=== PATIENT | male | born 1955 | race Caucasian/White ===

== ENCOUNTER 2020-02-08 21:56 | Inpatient (IN) ==
[2020-02-08] MEDS ORDERED: ONDANSETRON INJ 2 MG/ML 2 ML VIAL IV STA (22:14)
--- NOTE | 2020-02-08 22:44 | Emergency Department Note ---
History of Present Illness General Chief complaint: Fall Stated complaint: FALL, STRUCK HEAD Time Seen by Provider: 02/08/20 22:07 History of Present Illness Maximum Pain Intensity: 5 This is a 64-year-old male that presents to the emergency department via ambulance with complaints of "fall, struck head". The patient states that earlier today he was in his wheelchair and was backing up and notes that this was out of his garage and believes that the wheel struck a rock causing him to tip over striking the back of the head and left side of the head against the concrete. He notes immediate pain in the head. This occurred around 8 PM. He also notes significant numbness and trouble with his body from the chest down secondary to surgery in August and this is not new as of today. He also notes pain in his right arm and right forearm. Patient notes that he lives alone currently. He denies any anticoagulant use. In addition to the left-sided head pain he also notes pain in the right arm. He does have to self catheterize. He rates her overall discomfort as a 5/10. Home Medications Home Medications Medication Instructions Recorded Confirmed Type acetazolamide 125 mg PO BID 02/08/20 02/08/20 History atenolol 50 mg PO DAILY 02/08/20 02/08/20 History gabapentin 300 mg PO TID 02/08/20 02/08/20 History insulin detemir U-100 [Levemir 64 unit SUBCUT HS 02/08/20 02/08/20 History FlexTouch U-100 Insuln] losartan 25 mg PO DAILY 02/08/20 02/08/20 History pantoprazole 40 mg PO DAILY 02/08/20 02/08/20 History tamsulosin 0.4 mg PO BID 02/08/20 02/08/20 History tramadol 50 mg PO Q6 PRN 02/08/20 02/08/20 History Allergies Allergy/AdvReac Type Severity Reaction Status Date / Time Sulfa (Sulfonamide Allergy Unknown Verified 02/09/20 01:29 Antibiotics) canagliflozin [From Invokana] AdvReac Unknown Verified 02/09/20 01:29 metformin AdvReac Gastrointestinal Verified 02/09/20 01:29 Upset Past Med/Surg History Medical History Diabetes HTN (hypertension) Surgical History Hx of spinal surgery Status post craniectomy Social History Smoking Status: Never smoker Second Hand Exposure: Yes; Do You Dip or Chew Tobacco: No; Hx Alcohol Use: No Hx Substance Use: No Preferred Language: Azeri Communication Ability: Effective Beliefs That Will Affect Care: None Current Living Situation: Alone Current Living Situation Comment: single story home Feels Safe at Home: Yes Safety Concerns: Afraid for Self Review of Systems A total of 10 systems reviewed and were otherwise negative Physical Exam Vital Signs Vital Signs - 24 hr 02/08/20 22:01 02/08/20 23:56 02/09/20 00:58 Temperature 36.7 C Temperature Source Oral Pulse Rate 74 Pulse Rate [Right] 79 102 H Pulse Rhythm Regular Pulse Rhythm [Right] Regular Regular Pulse Strength Normal Pulse Strength [Right] Normal Normal Respiratory Rate 16 16 16 Respiratory Effort / Characteristics Non-Labored Spontaneous Non-Labored Spontaneous Non-Labored Spontaneous Respiratory Depth Normal Normal Normal Blood Pressure 133/78 Blood Pressure [Right Arm] 148/79 H 144/81 H Blood Pressure Mean 96 Blood Pressure Mean [Right Arm] 102 102 Blood Pressure Position Lying Blood Pressure Position [Right Arm] Lying Lying Pulse Oximetry 96 96 97 Oxygen Delivery Method Room Air Room Air Room Air Sepsis Recent Fever Within 48 Hours No Sepsis New/Unexplained Change in Mental Status N/A Sepsis Action Taken by Nursing No Action Required 02/09/20 02:05 Temperature Temperature Source Pulse Rate Pulse Rate [Right] 90 Pulse Rhythm Pulse Rhythm [Right] Regular Pulse Strength Pulse Strength [Right] Normal Respiratory Rate 16 Respiratory Effort / Characteristics Non-Labored Spontaneous Respiratory Depth Normal Blood Pressure Blood Pressure [Right Arm] 148/87 H Blood Pressure Mean Blood Pressure Mean [Right Arm] 107 Blood Pressure Position Blood Pressure Position [Right Arm] Lying Pulse Oximetry 96 Oxygen Delivery Method Room Air Sepsis Recent Fever Within 48 Hours Sepsis New/Unexplained Change in Mental Status Sepsis Action Taken by Nursing VITAL SIGNS - Vital signs and nursing notes were reviewed. Stable and afebrile. GENERAL -64-year-old male appearing his stated age who is in no acute distress. Communicates well with provider and answers questions appropriately. SKIN - Without rashes. Small abrasion to the left lateral leg. No bony deformity. HEAD - NC/AT. No feliz signs or raccoon's eyes. There is tenderness overlying left lateral parietal region EYES - PERRL with EOMI bilaterally. Sclera anicteric. EARS - No deformities of external structures noted on gross examination bilaterally. No hemotympanum. NOSE - Midline and without cyanosis. No epistaxis or purulent drainage noted. Septum midline without deviation or septal hematoma noted. MOUTH/OROPHARYNX - Without perioral cyanosis. Buccal mucosa pink and moist and without leukoplakia. Tongue midline with equal elevation of palate bilaterally. No tonsillar hypertrophy, erythema, or exudates noted. Fair dentition noted. NECK -no direct C-spine tenderness but there is evidence of surgical incision well-healed. LUNGS - Chest wall symmetric without accessory muscle use, intercostals retractions, or central cyanosis. Normal vesicular breath sounds CTA B/L. No wheezes, rales, or rhonchi appreciated. CARDIAC - RRR with S1/S2. No murmur, rubs, or gallops appreciated. ABDOMEN - Abdominal contour normal without pulsations or visible masses. BS normoactive all four quadrants. No tenderness, palpable masses, hepatosplenomegaly, or ascites noted. EXTREMITIES - No clubbing or peripheral cyanosis. No pretibial edema present. Patient does have strength deficits on the right compared to left which he notes is not new. NEUROLOGIC - Cranial nerves II through XII grossly intact. PSYCH - A&Ox3 and cooperates fully with examiner. Pt is very pleasant and interacts well with examiner. Course Administered Medications Acetaminophen (Acetaminophen 325 Mg Tab) 650 mg PO Q6H ZAMZAM Stop: 03/10/20 05:59 Last Admin: 02/10/20 12:17 Dose: 650 mg Documented by: [id number] Admin: 02/10/20 05:25 Dose: 650 mg Documented by: [id number] Admin: 02/10/20 00:06 Dose: 650 mg Documented by: [id number] Admin: 02/09/20 17:26 Dose: 650 mg Documented by: [id number] Admin: 02/09/20 12:43 Dose: 650 mg Documented by: [id number] Admin: 02/09/20 06:16 Dose: 650 mg Documented by: [id number] Acetazolamide (Acetazolamide 250 Mg Tab) 125 mg PO BID ZAMZAM Stop: 03/10/20 08:59 Last Admin: 02/10/20 08:32 Dose: 125 mg Documented by: [id number] Admin: 02/09/20 21:23 Dose: 125 mg Documented by: [id number] Admin: 02/09/20 09:10 Dose: 125 mg Documented by: [id number] Atenolol (Atenolol 50 Mg Tablet) 50 mg PO DAILY ZAMZAM Stop: 03/10/20 08:59 Last Admin: 02/10/20 08:33 Dose: 50 mg Documented by: [id number] Admin: 02/09/20 09:09 Dose: 50 mg Documented by: [id number] Gabapentin (Gabapentin 300 Mg Cap) 300 mg PO TID ZAMZAM Stop: 03/10/20 08:59 Last Admin: 02/10/20 14:33 Dose: 300 mg Documented by: [id number] Admin: 02/10/20 08:32 Dose: 300 mg Documented by: [id number] Admin: 02/09/20 21:22 Dose: 300 mg Documented by: [id number] Admin: 02/09/20 13:00 Dose: 300 mg Documented by: [id number] Admin: 02/09/20 09:10 Dose: 300 mg Documented by: [id number] Insulin Aspart (Insulin Aspart 100 Units/Ml 3 Ml Pen) 0 units SC ACHS ZAMZAM Stop: 03/10/20 05:19 Last Admin: 02/10/20 12:23 Dose: 11 units Documented by: [id number] Cosigned by: [id number] Admin: 02/10/20 08:35 Dose: 7 units Documented by: [id number] Cosigned by: [id number] Admin: 02/09/20 21:24 Dose: 3 units Documented by: [id number] Cosigned by: [id number] Admin: 02/09/20 17:28 Dose: 6 units Documented by: [id number] Cosigned by: [id number] Admin: 02/09/20 12:43 Dose: 9 units Documented by: [id number] Cosigned by: [id number] Admin: 02/09/20 09:13 Dose: 8 units Documented by: [id number] Cosigned by: [id number] Admin: 02/09/20 06:17 Dose: 7 units Documented by: [id number] Cosigned by: [id number] Losartan Potassium (Losartan Potassium 25 Mg Tab) 25 mg PO DAILY ZAMZAM Stop: 03/10/20 08:59 Last Admin: 02/10/20 08:32 Dose: 25 mg Documented by: [id number] Admin: 02/09/20 09:09 Dose: 25 mg Documented by: [id number] Meclizine HCl (Meclizine Hcl 25 Mg Tab) 25 mg PO Q8 PRN PRN Reason: Dizziness or Vertigo Stop: 03/10/20 09:43 Last Admin: 02/10/20 12:17 Dose: 25 mg Documented by: [id number] Admin: 02/09/20 12:59 Dose: 25 mg Documented by: [id number] Tamsulosin HCl (Tamsulosin Hcl 0.4 Mg Cap) 0.4 mg PO BID ZAMZAM Stop: 03/10/20 08:59 Last Admin: 02/10/20 08:32 Dose: 0.4 mg Documented by: [id number] Admin: 02/09/20 21:22 Dose: 0.4 mg Documented by: [id number] Admin: 02/09/20 09:09 Dose: 0.4 mg Documented by: [id number] Tramadol HCl (Tramadol Hcl 50 Mg Tablet) 50 mg PO Q6 PRN PRN Reason: Pain Stop: 03/10/20 04:04 Last Admin: 02/10/20 14:34 Dose: 50 mg Documented by: [id number] Discontinued Medications Acetaminophen (Acetaminophen 500 Mg Tab) 1,000 mg PO NOW STA Stop: 02/09/20 00:34 Last Admin: 02/09/20 00:49 Dose: 1,000 mg Documented by: [id number] Insulin Glargine (Insulin Glargine Solostar 100 Units/Ml 3 Ml Pen) 25 units SC BID ZAMZAM Stop: 03/10/20 08:59 Last Admin: 02/10/20 08:37 Dose: 25 units Documented by: [id number] Cosigned by: [id number] Admin: 02/09/20 21:25 Dose: 25 units Documented by: [id number] Cosigned by: [id number] Admin: 02/09/20 09:14 Dose: 25 units Documented by: [id number] Cosigned by: [id number] Ioversol (Ioversol 100ml) 93 ml IV ONCE ONE Stop: 02/08/20 23:26 Last Admin: 02/08/20 23:25 Dose: 93 ml Documented by: [id number] Ondansetron HCl (Ondansetron Inj 2 Mg/Ml 2 Ml Vial) 4 mg IV NOW STA Stop: 02/08/20 22:15 Last Admin: 02/08/20 22:19 Dose: 4 mg Documented by: [id number] Medical Decision Making Laboratory Data Result diagrams: 02/08/20 22:37 02/08/20 22:37 Lab Results 02/08/20 02/08/20 Range/Units 22:37 22:37 WBC 12.53 H (4.8-10.8) K/uL RBC 5.72 (4.7-6.1) M/uL Hgb 16.4 (14.0-18.0) g/dL Hct 47.1 (42-52) % MCV 82.3 (80-100) fL MCH 28.7 (25-34) pg MCHC 34.8 (32-36) g/dL RDW Std Deviation 42.3 (36.4-46.3) fL RDW Coeff of Vicente 14.2 (11.5-14.5) % Plt Count 196 (130-400) K/uL MPV 10.2 (7.4-10.4) fL Immature Gran % (Auto) 0.6 % Neut % (Auto) 74.3 % Lymph % (Auto) 16.0 % Braxton % (Auto) 6.8 % Eos % (Auto) 2.1 % Baso % (Auto) 0.2 % Neut # (Auto) 9.32 H (1.4-6.5) K/uL Lymph # (Auto) 2.00 (1.2-3.4) K/uL Braxton # (Auto) 0.85 H (0.11-0.59) K/uL Eos # (Auto) 0.26 (0-0.5) K/uL Baso # (Auto) 0.02 (0-0.2) K/uL Immature Gran # (Auto) 0.08 H (0.00-0.02) K/uL Sodium 140 (136-145) mmol/L Potassium 3.5 (3.5-5.1) mmol/L Chloride 110 H (98-107) mmol/L Carbon Dioxide 22 (21-32) mmol/L Anion Gap 8.0 (3-11) BUN 13 (7-18) mg/dl Creatinine 0.96 (0.6-1.4) mg/dl Est Cr Clr Drug Dosing 84.9 ml/min Est GFR ( Amer) 96.4 Est GFR (Non-Af Amer) 83.2 BUN/Creatinine Ratio 14.0 (10-20) Glucose 240 H (70-99) mg/dl Calcium 9.0 (8.5-10.1) mg/dl Total Bilirubin 0.4 (0.2-1) mg/dl AST 42 H (15-37) U/L ALT 72 (12-78) U/L Alkaline Phosphatase 105 (45-117) U/L Total Protein 7.5 (6.4-8.2) gm/dl Albumin 3.2 L (3.4-5.0) gm/dl Globulin 4.3 H (2.5-4.0) gm/dl Albumin/Globulin Ratio 0.7 L (0.9-2) Imaging Data Radiologist's Impression: CT HEAD: Comparison: CT cervical spine 02/08/2020 Right occipital craniectomy with partially seen posterior 3 cm seroma. Posterior fossa, fourth ventricle, basilar cisterns, cerebellopontine angles are unremarkable. 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 Fourth ventricle, aqueduct of Sylvius is patent. Third ventricle, lateral ventricles are slightly prominent. Normal morphology of the temporal horns and occipital horns. Mild bilateral cavernous carotid calcifications. Bilateral middle turbinate jonathon bullosa. Radiologist: Nona Pelaez MD Study ready at 23:47 and initial results transmitted at 23:53 CT C SPINE: Comparison: MRI cervical spine 08/14/2018 Occipital craniotomy. Posterior elements of C1-C7 are absent. 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 This appears similar to previous exam. Atrophic appearance to the spinal cord. Please see previous MRI for additional positive findings involving cervical and thoracic spinal cord. Mild left carotid calcification. Lung apices are normal. Anatomic alignment. Negative for fracture. Lung apices are clear Radiologist: Nona Pelaez MD Study ready at 23:54 and initial results transmitted at 00:14 CT CHEST With Contrast: Mild bilateral coronary calcification. No endotracheal or endobronchial lesion. Absence of posterior elements of cervical spine and upper thoracic spine are again noted. Fatty liver Status post cholecystectomy Slightly distended stomach with ingested contents. Summary: No acute findings. Radiologist: Nona Pelaez MD Study ready at 23:54 and initial results transmitted at 00:34 CT ABDOMEN & PELVIS With Contrast: Coronary calcification. Diffuse fatty liver. Status post cholecystectomy Slightly distended stomach with ingested contents Normal appendix. Mesenteric and pelvic lipomatosis. Radiologist: Nona Pelaez MD Study ready at 23:57 and initial results transmitted at 00:39 CT T SPINE: MRI thoracic spine 08/14/2018 Absence of posterior elements involving the upper thoracic spine. Old healed right first rib fracture. No loss of vertebral body height. Please see previous MRI thoracic spine for additional positive findings Radiologist: Nona Pelaez MD Study ready at 00:03 and initial results transmitted at 00:41 CT L SPINE: Straightening of the normal lumbar lordosis. Vacuum disc phenomena at L4-5, L2-3. Facet arthropathy at L3-4, L4-5 and L5-S1. No acute findings. Radiologist: Nona Pelaez MD Study ready at 00:03 and initial results transmitted at 01:01 [facility] Narrative Patient was seen and evaluated as above in room C 10. Review was performed of nursing notes and vital signs. I did review pertinent previous visits and patient history. After obtaining a thorough history and physical examination the above work up was performed. He presents to us today via ambulance for evaluation status post fall from a wheelchair. It appears that he was backing up with a wheelchair and struck a rock causing the wheel to catch in the wheelchair to tip over and he subsequently struck the occipital region of the head/left side of the head against concrete. No reported loss of consciousness but he does have a fair amount of pain in the head since that time. Patient notes chronic paresthesias of the body from the chest down secondary to recent surgery in August. These findings are not new from today. Patient also had right arm pain. Given the patient's inability to feel any pain from the chest down I did feel it be reasonable to obtain CT head the pelvis with recons of the T and L-spine. Results as above. No acute fracture, internal bleeding or other traumatic finding. X-rays per my interpretation are negative for fracture. The patient was educated upon findings and options of care were discussed. The p atient feels safer staying in the hospital rather than being discharged home tonight noting that he lives alone. I did obtain consent and spoke with his sisters via phone. I inquired whether or not someone could stay with him tonight and it was felt that this was not going to be possible and they agreed that we better for him to stay in the hospital overnight. I believe the patient likely has a concussion and he does have nausea which was treated here with IV Zofran. I discussed the presentation with our community case manager and subsequently the hospitalist. Please refer to further documentation regarding his stay. GCS: 15 In the evaluation and treatment of this patient, the following differential diagnoses were considered: Concussion, Contrecoup Injury, Brain Tumor, Depression, Encephalitis, Hypothyroidism, Meningitis, CVA, TIA, Migraine, Cluster Headache, Intracranial Abnormality, Intracranial Hemorrhage, Subdural Hematoma, Subarachnoid Hemorrhage, Hydrocephalus, acute traumatic injury, among others. Impression & Plan Fall from wheelchair, Nausea, Closed head injury Discharge Plan Visit Data Chief Complaint: Fall Stated Complaint: FALL, STRUCK HEAD ED Provider: Jose Weeks ED Midlevel Provider: Seth Paredes Discharge Problem: Fall from wheelchair, Nausea, Closed head injury Patient Disposition: Admitted As Inpatient Condition: Good Discharge Instructions Interventions: ED Discharge Assessment Last Done: 02/09/20 03:01 Addendum (Blank) Addendum February 10, 2020 15:39 HPI: The patient is a pleasant 64-year-old gentleman with a past medical history of multiple spinal surgeries with history of quadriparesis, wheelchair bound who presents emergency department after falling backwards in his wheelchair and hitting his head. PE: AFVSS, NAD NC/AT RRR CTAB Abd soft NT/ND Ext: no edema, erythema Neuro: At patient baseline. Plan: CT scan of head, CTL spine, Chest, abdomen and pelvis without acute process per preliminary [facility] report. Patient feels sore and concerned about falling again at home since he lives alone. Admit. I reviewed the patient's past medical history, medications, and visit nursing notes. I discussed the case with the physician product development assistant, examined the patient, and agree with the findings and plan as documented in SAMI Paredes's note.
[2020-02-08 22:48] LABS: Basophils # (auto) 0.02 K/uL (0-0.2); Basophils % (auto) 0.2 %; Eosinophils # (auto) 0.26 K/uL (0-0.5); Eosinophils % (auto) 2.1 %; Hematocrit (blood only) 47.1 % (42-52); Hemoglobin 16.4 g/dL (14.0-18.0); Immature Granulocytes # (auto) 0.08 K/uL (0.00-0.02); Immature Granulocytes % (auto) 0.6 %; Mean Corpuscular Hemoglobin 28.7 pg (25-34); Mean Corpuscular Hgb Conc 34.8 g/dL (32-36); Mean Corpuscular Volume 82.3 fL (80-100); Mean Platelet Volume 10.2 fL (7.4-10.4); Monocytes # (auto) 0.85 K/uL (0.11-0.59); Monocytes % (auto) 6.8 %; Neutrophils # (auto) 9.32 K/uL (1.4-6.5); Neutrophils % (auto) 74.3 %; Platelet Count 196 K/uL (130-400); RDW Coefficient of Variation 14.2 % (11.5-14.5); RDW Standard Deviation 42.3 fL (36.4-46.3); Red Blood Count 5.72 M/uL (4.7-6.1); White Blood Count 12.53 K/uL (4.8-10.8)
[2020-02-08 23:09] LABS: Albumin Level 3.2 gm/dl (3.4-5.0); Creatinine Clr Calc Pharmacy 84.9 ml/min; Est GFR (African American) 96.4; Est GFR (Non-African American) 83.2; Potassium 3.5 mmol/L (3.5-5.1)
[2020-02-08 23:12] LABS: Albumin Globulin Ratio 0.7 (0.9-2); Bilirubin,Total 0.4 mg/dl (0.2-1); Globulin 4.3 gm/dl (2.5-4.0); Total Protein 7.5 gm/dl (6.4-8.2)
[2020-02-08] MEDS ORDERED: IOVERSOL 100ml IV ONE (23:25)
[2020-02-09] MEDS ORDERED: ACETAMINOPHEN 500 MG TAB PO STA (00:33)
--- NOTE | 2020-02-09 02:43 | History & Physical Report ---
Date of Service February 09, 2020 Assessment & Plan (1) Fall from wheelchair: Tushar is a 64-year-old male with a past medical history of multiple spinal surgeries with resultant numbness to soft touch and most pain below the level of T4, weakness in his bilateral lower extremities, weakness in his right extremity, and normal function of his left arm. Traumatic fall, closed head injury Cognitive status at baseline, patient with extensive sensory and motor weakness 2/2 multiple spine surgeries, past spinal cyst, and traumatic neck injury Patient fields scanned on ED arrival due to inability to sense pain in lower extremities CT series shows no acute fracture, no skull fracture, no intracranial bleeding Social concern is raised for the safety of patient's home environment, he lives alone with his sister is nearby but recently had home health and PT services stopped last week. He endorses multiple falls in the last week. disabilities services officer consult placed. Admit for observation, patient and family not comfortable with patient returning home at time of assessment Ambulatory dysfunction Patient with lower extremity weakness, and lack of sensation below T4 Reportedly can use a wheelchair and can stand, but with poor balance. Recently stopped PT, but with multiple falls PT/OT consulted Type 2 diabetes mellitus Insulin weight-based with sliding scale Glucose checks AC/at bedtime Continue losartan 25 mg daily Hypertension Continue losartan as above Continue atenolol 50 mg p.o. daily Continue Acetazolamide DVT prophylaxis: Deferred in the setting of traumatic injury, SCDs Diet: Regular Disposition: Med/surgical plus telemetry CODE STATUS: DNR/DNI (2) Concussion: (3) Nausea: History of Present Illness Chief Complaint: Headache, fall Primary Care Provider: J Carlos Lopez Tushar is a 64-year-old male with a past medical history of multiple spinal surgeries with resultant numbness to soft touch and most pain below the level of T4, weakness in his bilateral lower extremities, weakness in his right extremity, and normal function of his left arm. 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 He presents to the hospital after he was wheeling backwards in his wheelchair which tipped over backwards causing him to fall back and strike his occiput and left temporal skull. He reports "he saw stars "and heard a crack, and was dazed for a minute or 2. His sisters who live next door help care for him, his sister is present at bedside to help give collateral. He called EMS and was transported to the ED for evaluation by ambulance. On arrival he had 10/10 pain and sensitivity in his left temporal cranium, but felt he was at his normal cognitive baseline. He did not experience any worsening of his sensory deficits or acute weakness. He denies syncope, presyncope, chest pain, chest pressure, shortness of breath. No recent sick contacts. He reports his fall was mechanical and that he did not have any lightheadedness/dizziness or neurologic change that led to his fall. He is currently nauseous. Denies other symptoms. He endorses multiple falls in the previous month, and several in the last week. He reports that this has been worse with muscle relaxants, but even since stopping he has continued to have multiple falls per week. Medical history: Reviewed Surgical history: Reviewed Medications: Reviewed Allergies: Reviewed Family history: Noncontributory CODE STATUS: DNR/DNI, confirmed with patient Allergies Allergy/AdvReac Type Severity Reaction Status Date / Time Sulfa (Sulfonamide Allergy Unknown Verified 02/09/20 01:29 Antibiotics) canagliflozin [From Invokana] AdvReac Unknown Verified 02/09/20 01:29 metformin AdvReac Gastrointestinal Verified 02/09/20 01:29 Upset Home Medications Home Medications Medication Instructions Recorded Confirmed Type acetazolamide 125 mg PO BID 02/08/20 02/08/20 History atenolol 50 mg PO DAILY 02/08/20 02/08/20 History gabapentin 300 mg PO TID 02/08/20 02/08/20 History insulin detemir U-100 [Levemir 64 unit SUBCUT HS 02/08/20 02/08/20 History FlexTouch U-100 Insuln] losartan 25 mg PO DAILY 02/08/20 02/08/20 History pantoprazole 40 mg PO DAILY 02/08/20 02/08/20 History tamsulosin 0.4 mg PO BID 02/08/20 02/08/20 History tramadol 50 mg PO Q6 PRN 02/08/20 02/08/20 History Past Med/Surg History Medical History Diabetes HTN (hypertension) Surgical History Hx of spinal surgery Status post craniectomy Social History Smoking Status: Never smoker Second Hand Exposure: Yes; Do You Dip or Chew Tobacco: No; Hx Alcohol Use: No Hx Substance Use: No Preferred Language: Syriac Communication Ability: Effective Beliefs That Will Affect Care: None Current Living Situation: Alone Current Living Situation Comment: single story home Feels Safe at Home: Yes Safety Concerns: Afraid for Self Review of Systems Review of Systems: Constitutional: Denies fever, chills, malaise, weight change Eyes: Denies vision change ENT: Denies ear pain, sore throat, sinus pain Cardiovascular: Denies Chest pain, chest pressure, palpitations, extremity swelling Respiratory: Denies shortness of breath, cough, sputum production, difficulty breathing Gastrointestinal: See HPI Genitourinary: Denies pain with urination Musculoskeletal: See HPI Integumentary:Denies rash, lesions, bruising Neurological: See HPI Physical Exam Physical Exam: General: A&Ox3. NAD. Cooperative. HEENT: Atraumatic, normocephalic. Pulm: CTAB A&P. -wheezes, -rales, -rhonchi. Symmetrical chest rise. No increase work of breathing. No respiratory distress. Cardiac: RRR, -mrg. Radial pulses intact and symmetrical. Abdominal: Nontender, nondistended, soft. BS present. Cranium: Extremely tender to palpation at left anterior/superior temporal lobe. Slight soft tissue swelling observed, no hematoma/discoloration. No crepitus appreciated. No occipital crepitus/tenderness appreciated. CN II: Visual coleman are full to confrontation. Pupils are equal and react to light and accomidation. Visual acuity grossly intact. CN III, IV, : At primary gaze, there is no eye deviation. EoM intact without nystagmus. No visual field cuts. CN V: Facial sensation is intact to soft touch in all 3 divisions bilaterally. CN VII: No facial asymmetry, full strength to eyebrow raise, smile, eye close, and cheek puff. CN VII: Hearing is grossly intact. CN IX, X: Palate elevates symmetrically. Phonation is normal without dysarthria. CN XI: Head turning intact CN XII: Tongue protrudes midline. Sensory: Soft touch absent in feet, legs, thighs, and lower abdomen bilaterally. Sensation to soft touch diminished in right arm, absent in right hand. Sensation is soft touch intact in the left arm/hand. Strength: RUE: Shoulder flexion/extension/internal rotation/external rotation, elbow flexion/extension, finger flexion/extension, operations supervisor strength, interosseous 4-/5 LUE: Shoulder flexion/extension/internal rotation/external rotation, elbow f lexion/extension, finger flexion/extension, operations supervisor strength, interosseous 5/5 RLE: Hip flexion, knee flexion/extension, ankle plantar flexion/dorsiflexion 4- /5 LLE: Hip flexion, knee flexion/extension, ankle plantar flexion/dorsiflexion 4- /5 Results & Data Results & Data ([facility]) Vital Signs (Past 12 Hours) Vital Signs Temp Pulse Pulse Resp BP BP Pulse Ox 02/09/20 02:05 90 16 148/87 H 96 02/09/20 00:58 102 H 16 144/81 H 97 02/08/20 23:56 79 16 148/79 H 96 02/08/20 22:01 36.7 C 74 16 133/78 96 Supervising Physician Co-Signing Physician Notes Attending addendum: I have physically seen this patient, have supervised the medical residents activities, and agree with the H&P unless as otherwise noted. Assessment and Plan: Closed head injury/fall from wheelchair- Patient is at his physical and mental baseline. Imaging normal in ED. Consult social studies department chair/palliative care to determine home health needs and PT services as per stop last week. Consult PT/OT Hypertension- Continue losartan 25 mg daily, atenolol 50 mg daily and acetazolamide on 25 mg p.o. twice daily. Remaining orders and notations as noted. Resident Activity Tracking Resident Involvement: Resident Care Provided Care Provided: Adult [facility]
[2020-02-09] MEDS ORDERED: GLUCAGON FOR INJ 1 MG VIAL SQ PRN (04:05)
[2020-02-09] MEDS ORDERED: CARBOHYDRATES FOR HYPOGLYCEMIA PO PRN (04:05)
[2020-02-09] MEDS ORDERED: GLUCOSE 40% GEL 15 GM TUBE PO PRN (04:05)
[2020-02-09] MEDS ORDERED: GLUCOSE 10 TABS/TUBE PO PRN (04:05)
[2020-02-09] MEDS ORDERED: DEXTROSE 50% 50 ML SYRINGE IV PRN (04:05)
[2020-02-09] MEDS ORDERED: TRAMADOL HCL 50 MG TABLET PO PRN (04:05)
[2020-02-09] MEDS: ACETAMINOPHEN 325 MG TAB PO SCH ×3 (06:16→17:26)
[2020-02-09] MEDS: INSULIN ASPART 100 UNITS/ML 3 ML PEN SC SCH ×5 (06:17→21:24)
--- NOTE | 2020-02-09 07:09 | CT Scan Report ---
CT SCAN OF THE BRAIN WITHOUT IV CONTRAST CLINICAL HISTORY: Fall from wheelchair. COMPARISON STUDY: No priors. TECHNIQUE: Unenhanced axial CT scan of the brain is performed from the vertex to the skull base. A do se lowering technique was utilized adhering to the principles of ALARA. FINDINGS: Brain parenchyma: There is central greater than peripheral volume loss with dilatation of the lateral ventricles. There is mild subcortical and periventricular microangiopathic change. There is no hemor rhage, mass effect, or evidence of acute territorial ischemia by CT criteria. Cifuentes-white matter diffe rentiation is preserved. No extra-axial fluid collection is seen. Ventricles, sulci, cisterns: Prominent secondary to involutional change. Intracranial vasculature: There is atherosclerotic calcification of the cavernous carotid and vertebr al arteries. Calvarium: The skeletal structures are osteopenic. There is evidence of previous occipital craniectom y. 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 No depressed calvarial fra cture is identified. Sinuses and mastoids: Mild mucosal thickening is noted in the right maxillary antrum. The remaining p aranasal sinuses are clear. The mastoid air cells are well pneumatized. Orbits: The bony orbits are grossly intact. IMPRESSION: 1. There is no hemorrhage, mass effect, or evidence of acute territorial ischemia by CT criteria. 2. There is postoperative change from occipital craniectomy. A small pseudovomiting as well as partia lly imaged. ACT 112: Negative or not required by law. Electronically signed by: David Odom M.D. 02/09/2020 7:08 AM
[2020-02-09] MEDS ORDERED: INSULIN ASPART 100 UNITS/ML 3 ML PEN SC SCH (07:30)
--- NOTE | 2020-02-09 08:13 | CT Scan Report ---
CT SCAN OF THE CHEST, ABDOMEN, AND PELVIS WITH IV CONTRAST; CT SCAN OF THE THORACIC SPINE WITHOUT IV CONTRAST; CT SCAN OF THE LUMBAR SPINE WITHOUT IV CONTRAST CLINICAL HISTORY: Trauma. Fall. COMPARISON STUDY: MRI of the thoracic spine dated 08/14/2018. TECHNIQUE: Following the IV administration of 93 of Optiray 320, CT scan of the chest, abdomen, and p ephraim was performed from the thoracic inlet to the proximal femora. Images are reviewed in the axial, sagittal, and coronal planes. IV contrast was administered without complication. Additionally, unen hanced CT scan of the thoracic spine is performed from the lower cervical spine to the upper lumbar s pine and unenhanced CT scan of lumbar spine is performed from the lower thoracic spine to the sacrum. The thoracic and lumbar spinal CT scans are reviewed in the axial, sagittal, and coronal planes. IV contrast was not administered specifically for the spinal CTs. A dose lowering technique was utilized adhering to the principles of ALARA. The examination is degraded by streak artifact from the right a rm which could not be elevated above the chest or abdomen. CT DOSE: 3008.95 mGy.cm FINDINGS: CHEST: Thyroid: Imaged portions of the thyroid gland are normal in size and attenuation. Thoracic aorta: There is mild atherosclerotic calcification of the thoracic aorta, which is normal in caliber and demonstrates 4-vessel variant arch anatomy. No dissection is seen. Pulmonary vasculature: The pulmonary trunk is normal in caliber. There are no filling defects identif ied in the central pulmonary vessels to indicate pulmonary embolus. Note that this examination was no t protocoled for evaluation of the pulmonary arteries. Heart: The heart is normal in size and without pericardial effusion. The coronary arteries are densel y calcified. Lungs and pleural spaces: Evaluation of the lung parenchyma is degraded by motion artifact. No airspa ce consolidation, pleural effusion, or pneumothorax is seen. The trachea and central airways are carlos r. Atelectasis is noted at the lung bases. There are scattered calcified granulomas. A 3 mm left uppe r lobe pulmonary nodule is seen on image #133. A 4 mm right middle lobe pulmonary nodule is seen on i mage #142. Mediastinum: There is no mediastinal hematoma or lymphadenopathy. Lizzy: Clear. Axillae: There is no axillary lymphadenopathy. Bony thorax: The skeletal structures are osteopenic. The bony thorax appears intact. See below for de dicated assessment of the thoracic spine. No lytic or blastic lesions are identified. THORACIC SPINE: Vertebral body height and alignment are maintained throughout the thoracic spine. Sma ll anterior osteophytes are seen throughout. The transverse processes are intact. There is postoperat rusty change from thoracic laminectomy seen from T2 to T6. There is mild multilevel degenerative disc s pace narrowing. There is no evidence of large disc herniation or high-grade central canal stenosis by CT. Postoperative change is seen within the paraspinous soft tissues the operative levels. No organi zed fluid collection is identified. ABDOMEN AND PELVIS: Liver: The contrast-enhanced liver is enlarged, measuring 19.2 cm in length. The liver demonstrates d iffusely diminished attenuation consistent with hepatic steatosis. There is no intrahepatic biliary d uctal dilatation. The hepatic veins and portal veins are patent. Gallbladder: Surgically absent noting clips in the gallbladder fossa. Spleen: Normal in size and attenuation. Pancreas: Unremarkable. Adrenal glands: Unremarkable. Kidneys: The contrast enhanced kidneys are normal in size and without hydronephrosis. The kidneys enh ance symmetrically. Abdominal vasculature: The abdominal aorta is normal in course and caliber noting mild to moderate at herosclerotic calcification. Bowel: No bowel obstruction is identified. Mild fecal retention is seen in the colon. The appendix is well-visualized and normal. Peritoneum: There is no intraperitoneal free air or abdominal ascites. Lymphadenopathy: None. Pelvic viscera: The prostate gland is diminutive and heterogeneous. The bladder wall is thickened and trabeculated suggesting chronic outlet obstruction versus neurogenic bladder. There is a small fat-c ontaining right inguinal hernia. Skeletal structures: The skeletal structures are osteopenic. See below for dedicated assessment of th e lumbar spine. The sacrum, bony pelvis, and proximal femora appear intact. No lytic or blastic lesio ns are seen. LUMBAR SPINE: Vertebral body height and alignment are maintained throughout the lumbar spine. There i s straightening of the lumbar lordosis. Small anterior osteophytes are seen throughout. The transvers e and spinous processes are intact. There is no evidence of spondylolysis. There is mild multilevel d egenerative disc space narrowing. There is no evidence of large disc herniation or high-grade stenosi s by CT. The paraspinous soft tissues are within normal limits. IMPRESSION: 1. There is no acute posttraumatic intrathoracic abnormality. 2. There is no airspace consolidation, pleural effusion, or pneumothorax. 3. There is no evidence of solid organ injury in the abdomen or pelvis. 4. There is no evidence of fracture or malalignment involving the thoracic spine. 5. There is no evidence of fracture or malalignment involving the lumbar spine. 6. Hepatomegaly and hepatic steatosis. 7. Postlaminectomy change is noted in the upper thoracic spine. 8. There are at least 2 low suspicion pulmonary nodules measuring up to 4 mm. These can be followed i f clinically warranted as per the Fleischner criteria below. 9. Additional findings as above. Please refer to below summary of Fleischner criteria recommendations for follow-up of incidental CT n odules (Celi Hernandez, Guidelines for management of small pulmonary nodules detected on CT scans: A sta tement from the Fleischner Society, Radiology 237: [phone].) SOLID NODULES Solitary nodule size: <6 mm * low risk patients: no follow-up needed * high risk patients: optional CT at 12 months Solitary nodule size: 6-8 mm * low risk patients: follow-up at 6-12 months, then consider further follow-up at 18-24 months * high risk patients: initial follow-up CT at 6-12 months and then at 18-24 months if no change Solitary nodule size: >8 mm * either low or high risk patients - consider follow-up CT at 3 months, and/or CT-PET, and/or biopsy Multiple nodules size: <6 mm * low risk patients: no routine follow-up * high risk patients: optional CT at 12 months Multiple nodules size: 6-8 mm * low risk patients: follow-up at 3-6 months, then consider further follow-up at 18-24 months * high risk patients: follow-up at 3-6 months, then at 18-24 months if no change Multiple nodules size: >8 mm * low risk patients: follow-up at 3-6 months, then consider further follow-up at 18-24 months * high risk patients: follow-up at 3-6 months, then at 18-24 months if no change Note: newly detected indeterminate nodule in persons 35 years of age or older. * low risk patients: minimal or absent history of smoking and/or other known risk factors * high risk patients: history of smoking or of other known risk factors (e.g. first degree relative with lung cancer, or exposure to asbestos, radon, uranium) * if a nodule up to 8 mm is partly solid or is ground glass further follow-up is required after 24 m onths to exclude possible slow growing adenocarcinoma (BRITTNEY) SUBSOLID NODULES Solitary pure ground-glass nodule * nodule size <6 mm - no CT follow-up required * nodule size >=6 mm - follow-up CT at 6-12 months, then every 2 years until 5 years Solitary part-solid nodule * nodule size <6 mm - no CT follow-up required * nodule size >=6 mm - follow-up CT at 3-6 months. If unchanged, and solid component remains <6 mm, then annual follow-up for 5 years Multiple subsolid nodules * nodule size <6 mm - follow-up CT at 3-6 months, consider further follow-up at 2 and 4 years if sta ble * nodule size >=6 mm - follow-up CT at 3-6 months, subsequent management based on the most suspiciou s nodule(s) ACT 112: Negative or not required by law. Electronically signed by: David Odom M.D. 02/09/2020 8:12 AM
--- NOTE | 2020-02-09 08:48 | XRay Report ---
XR humerus RT 2V, XR forearm RT 2V HISTORY: 64 years-old Male Fall from wheelchair backwards, Pain acute right humerus and forearm pain COMPARISON: None TECHNIQUE: 2 views of the right humerus and 2 views of the right forearm FINDINGS: HUMERUS: Moderate AC joint with mild glenohumeral osteoarthritis. Probable minimal rotator cuff calcific tendi nosis. No acute fracture, dislocation or opaque foreign body. FOREARM: Mild radiocarpal osteoarthritis. Moderate sized enthesophyte of the olecranon process. No acute fract ure or dislocation. Arterial calcifications. IMPRESSION: No acute fracture or dislocation. ACT 112: Negative or not required by law. The above report was generated using voice recognition software. It may contain grammatical, syntax o r spelling errors. Electronically signed by: Pantera Fontanez M.D. 02/09/2020 8:47 AM
--- NOTE | 2020-02-09 08:55 | CT Scan Report ---
CT OF THE CERVICAL SPINE WITHOUT CONTRAST CLINICAL HISTORY: Fall from wheelchair backwards, Pain COMPARISON STUDY: MRI of the cervical spine August 14, 2018. TECHNIQUE: Helical axial images of the cervical spine were obtained without IV contrast. Sagittal a nd coronal reconstructions were viewed. Automated exposure control was utilized for the study. A do se lowering technique was utilized adhering to the principles of ALARA. FINDINGS: Extensive postoperative findings within the cervical spine are again noted. A occipital crab meat processor niectomy with posterior decompression from C1 through C7 is noted. There are also postoperative findi ngs at the T2 level. An operative bed fluid collection measures approximately 7.4 x 3.3 x 3.2 cm. Thi s is similar to MRI of August 14, 2018. This suggests a pseudomeningocele. Cervical cord appears at rophic, better depicted on prior MRI. No acute cervical spine fracture is noted. No suspicious osseou s lesion is noted. No prevertebral edema. No pneumothorax is shown within the lung apices. IMPRESSION: 1. No acute cervical spinal fracture or subluxation. 2. Extensive postoperative findings within the cervical spine and occiput status post decompression. No significant change in operative bed fluid collection since MRI of August 14, 2018 which favors a pseudomeningocele. ACT 112: Negative or not required by law. Electronically signed by: Yong aM M.D. 02/09/2020 8:53 AM
[2020-02-09] MEDS ORDERED: INSULIN GLARGINE SOLOSTAR 100 UNITS/ML 3 ML PEN SC SCH (09:00)
[2020-02-09] MEDS: TAMSULOSIN HCL 0.4 MG CAP PO SCH ×2 (09:09→21:22)
[2020-02-09] MEDS: ATENOLOL 50 MG TABLET PO SCH (09:09)
[2020-02-09] MEDS: LOSARTAN POTASSIUM 25 MG TAB PO SCH (09:09)
[2020-02-09] MEDS: acetaZOLAMIDE 250 MG TAB PO SCH ×2 (09:10→21:23)
[2020-02-09] MEDS: GABAPENTIN 300 MG CAP PO SCH ×3 (09:10→21:22)
[2020-02-09] MEDS: INSULIN GLARGINE SOLOSTAR 100 UNITS/ML 3 ML PEN SC SCH ×2 (09:14→21:25)
[2020-02-09] MEDS: MECLIZINE HCL 25 MG TAB PO PRN (12:59)
[2020-02-10] MEDS: ACETAMINOPHEN 325 MG TAB PO SCH ×5 (00:06→23:27)
--- NOTE | 2020-02-10 06:42 | Billing Data ---
Date of Service February 10, 2020 Coding Level of Care Code 09208 Initial Inpt Care Lvl 3
[2020-02-10] MEDS: GABAPENTIN 300 MG CAP PO SCH ×3 (08:32→21:29)
[2020-02-10] MEDS: LOSARTAN POTASSIUM 25 MG TAB PO SCH (08:32)
[2020-02-10] MEDS: TAMSULOSIN HCL 0.4 MG CAP PO SCH ×2 (08:32→21:29)
[2020-02-10] MEDS: acetaZOLAMIDE 250 MG TAB PO SCH ×2 (08:32→21:29)
[2020-02-10] MEDS: ATENOLOL 50 MG TABLET PO SCH (08:33)
[2020-02-10] MEDS: INSULIN ASPART 100 UNITS/ML 3 ML PEN SC SCH ×4 (08:35→21:27)
[2020-02-10] MEDS: INSULIN GLARGINE SOLOSTAR 100 UNITS/ML 3 ML PEN SC SCH ×2 (08:37→21:28)
[2020-02-10] MEDS: MECLIZINE HCL 25 MG TAB PO PRN (12:17)
--- NOTE | 2020-02-10 16:52 | Hospitalist Progress Note ---
Date of Service February 10, 2020 Assessment & Plan (1) Fall from wheelchair: no evidence of acute fracture or internal injury he now complains of vertigo, he says it started after he struck his head see below plan for rehab, [facility] or SNF (2) Nausea: likely due to vertigo, much better today continue Meclizine and Zofran (3) Closed head injury: fell out of his wheelchair, struck head on driveway no evidence of focal neurological deficits after injury no bruising or laceration on exam CT head without evidence of hematoma, no skull fracture (4) Diabetes: with hyperglycemia yesterday, improved somewhat with increasing Lantus to 25 BID and tightening Novolog SS even more improved today with Lantus 30 BID and correction factor 15, carb ratio 5 (5) HTN (hypertension): (6) Hx of spinal surgery: (7) Pulmonary nodule: incidental finding on CT chest, can be followed low suspicion, two nodules, both < 4mm (8) Vertigo: started after he struck his head definitely positional, worse with turning head to the side no nystagmus on exam some improvement with Antivert but he fell today will ask for PT with Eply maneuvers to evaluate for BPPV (9) Difficulty swallowing: only with solids, specifically proteins will ask speech to see tomorrow Admission and Anticipated Discharge Date Admission Date: February 09, 2020 Subjective patient still with vertigo symptoms, spinning when he turns his head to the side he was able to stand up, pivot and sit in chair with OT today he attempted to walk with PT in the [address] way but his left leg gave out and he fell down grazed left side of his head against the fall, no solid contact evaluated soon after, he is fully alert, denies any head pain, no skin injury or bruising seen he is now agreeable to [facility] spoke with his sister Marylin over the phone, she says that she does not believe he can walk as far as he says he can walk he is in his wheelchair a lot at his home, he lives by himself with his dog sugars better controlled today, were elevated yesterday, increased his Lantus and Novolog he is eating okay but c/o difficulty swallowing proteins like chicken, pork he has no issues swallowing soft, wet foods, will ask speech therapy to see him Review of Systems Review of Systems: All systems reviewed & are unremarkable except as noted in Subjective Constitutional: + fatigue and + weakness; no fever and no sweats Respiratory: no cough and no dyspnea Cardiovascular: no chest pain and no edema Gastrointestinal: + dysphagia; no abdominal pain, no nausea, no vomiting, no pain with swallowing, no constipation and no diarrhea/loose stools Musculoskeletal: + muscle weakness and + muscle atrophy Neurologic: + dizziness; no syncope, no headache(s) and no confusion Physical Exam Constitutional: WD/WN, vitals as above Eyes: PERRL, conjunctivae normal, anicteric sclerae ENMT: external ear and nose normal, oropharynx normal Neck: trachea midline, no thyromegaly Respiratory: normal respiratory effort, lungs clear to auscultation Cardiovascular: RRR, no murmur, no edema Gastrointestinal (Abdomen): normal bowel sounds, soft, nontender, no hepato splenomegaly Musculoskeletal: Head/Neck/Chest: normocephalic, head atraumatic and neck supple Spine: + limited thoraco-lumbar ROM Extremities: extremities normal to inspection, + limited ROM of extremities and + abnormal strength (generalized weakness in lower extremities) Skin: no rashes, warm and dry Neurologic: patellar DTR's 2+ bilat, sensation intact and PERRL, EOMI, accommodation nl, no face palsy, no dysarthria Psychiatric: A+Ox3, euthymic affect Lymphatic: no cervical or axillary lymphadenopathy Results & Data Results & Data ([facility]) Vital Signs (Past 12 Hours) Vital Signs Temp Pulse Pulse Resp BP Pulse Ox 02/10/20 16:12 36.6 C 58 L 18 123/76 98 02/10/20 15:00 61 02/10/20 14:07 36.4 C L 61 18 138/76 96 02/10/20 11:11 36.5 C 66 18 116/75 96 02/10/20 07:33 63 02/10/20 07:21 36.4 C L 59 L 18 117/76 94 Laboratory Results Laboratory Results - last 24 hr 02/09/20 02/10/20 02/10/20 20:05 07:31 12:20 POC Glucose 220 H 213 H 260 H Medications Administered Current Inpatient Medications Acetaminophen (Acetaminophen 325 Mg Tab) 650 mg PO Q6H [facility] Stop: 03/10/20 05:59 Last Admin: 08/19/20 12:17 Dose: 650 mg Documented by: Acetazolamide (Acetazolamide 250 Mg Tab) 125 mg PO BID [facility] Stop: 03/10/20 08:59 Last Admin: 02/10/20 08:32 Dose: 125 mg Documented by: Atenolol (Atenolol 50 Mg Tablet) 50 mg PO DAILY [facility] Stop: 03/10/20 08:59 Last Admin: 02/10/20 08:33 Dose: 50 mg Documented by: Dextrose (Dextrose 50% 50 Ml Syringe) 25 - 50 ml IV UD PRN; Protocol PRN Reason: Hypoglycemia Protocol Stop: 03/10/20 04:04 Gabapentin (Gabapentin 300 Mg Cap) 300 mg PO TID [facility] Stop: 03/10/20 08:59 Last Admin: 02/10/20 14:33 Dose: 300 mg Documented by: Glucagon (Glucagon For Inj 1 Mg Vial) 1 mg SQ UD PRN; Protocol PRN Reason: Hypoglycemia Protocol Stop: 03/10/20 04:04 Glucose (Glucose 10 Tabs/Tube) 4 - 8 tabs PO UD PRN; Protocol PRN Reason: Hypoglycemia Protocol Stop: 03/10/20 04:04 Glucose (Glucose 40% Gel 15 Gm Tube) 15 - 30 gm PO UD PRN; Protocol PRN Reason: Hypoglycemia Protocol Stop: 03/10/20 04:04 Insulin Aspart (Insulin Aspart 100 Units/Ml 3 Ml Pen) 0 units SC ACHS [facility] Stop: 03/10/20 05:19 Last Admin: 02/10/20 12:23 Dose: 11 units Documented by: Insulin Glargine (Insulin Glargine Solostar 100 Units/Ml 3 Ml Pen) 30 units SC BID [facility] Stop: 03/11/20 20:59 Losartan Potassium (Losartan Potassium 25 Mg Tab) 25 mg PO DAILY [facility] Stop: 03/10/20 08:59 Last Admin: 02/10/20 08:32 Dose: 25 mg Documented by: Meclizine HCl (Meclizine Hcl 25 Mg Tab) 25 mg PO Q8 PRN PRN Reason: Dizziness or Vertigo Stop: 03/10/20 09:43 Last Admin: 02/10/20 12:17 Dose: 25 mg Documented by: Miscellaneous (Carbohydrates For Hypoglycemia ) 15 - 30 gm PO UD PRN PRN Reason: Hypoglycemia Protocol Stop: 03/10/20 04:04 Tamsulosin HCl (Tamsulosin Hcl 0.4 Mg Cap) 0.4 mg PO BID [facility] Stop: 03/10/20 08:59 Last Admin: 02/10/20 08:32 Dose: 0.4 mg Documented by: Tramadol HCl (Tramadol Hcl 50 Mg Tablet) 50 mg PO Q6 PRN PRN Reason: Pain Stop: 03/10/20 04:04 Last Admin: 02/10/20 14:34 Dose: 50 mg Documented by: PG Care Time/CCT Total # of Minutes Spent Total Time Spent with Patient: Total time spent is greater than 50% in coordination of care (as documented) at patient's floor/unit and/or counseling patient: Coding Level of Care Code 03343 Subseq Hosp Care Lvl 3 Diagnoses Fall from wheelchair W05.0XXD Encounter type: subsequent encounter Nausea R11.0 Closed head injury S09.90XA Diabetes E11.9 HTN (hypertension) I10 Hx of spinal surgery Z98.890 Pulmonary nodule R91.1 Vertigo R42 Difficulty swallowing R13.10 (1) Fall from wheelchair Encounter type: subsequent encounter Qualified Code(s): W05.0XXD - Fall from non-moving wheelchair, subsequent encounter
[2020-02-11] MEDS: ACETAMINOPHEN 325 MG TAB PO SCH ×4 (04:50→23:43)
[2020-02-11 07:22] LABS: Basophils # (auto) 0.02 K/uL (0-0.2); Basophils % (auto) 0.2 %; Eosinophils # (auto) 0.21 K/uL (0-0.5); Eosinophils % (auto) 2.2 %; Hematocrit (blood only) 51.1 % (42-52); Hemoglobin 17.2 g/dL (14.0-18.0); Immature Granulocytes # (auto) 0.05 K/uL (0.00-0.02); Immature Granulocytes % (auto) 0.5 %; Lymphocytes # (auto) 2.48 K/uL (1.2-3.4); Lymphocytes % (auto) 26.1 %; Mean Corpuscular Hemoglobin 28.9 pg (25-34); Mean Corpuscular Hgb Conc 33.7 g/dL (32-36); Mean Corpuscular Volume 85.7 fL (80-100); Mean Platelet Volume 10.3 fL (7.4-10.4); Monocytes # (auto) 0.83 K/uL (0.11-0.59); Monocytes % (auto) 8.7 %; Neutrophils # (auto) 5.91 K/uL (1.4-6.5); Neutrophils % (auto) 62.3 %; Platelet Count 256 K/uL (130-400); RDW Coefficient of Variation 14.6 % (11.5-14.5); RDW Standard Deviation 46.1 fL (36.4-46.3); Red Blood Count 5.96 M/uL (4.7-6.1)
[2020-02-11 07:57] LABS: BUN Creatinine Ratio 13.3 (10-20); Calcium 9.1 mg/dl (8.5-10.1); Creatinine Clr Calc Pharmacy 81.5 ml/min; Est GFR (African American) 92.9; Est GFR (Non-African American) 80.2
[2020-02-11] MEDS: INSULIN ASPART 100 UNITS/ML 3 ML PEN SC SCH ×4 (09:35→21:08)
[2020-02-11] MEDS: LOSARTAN POTASSIUM 25 MG TAB PO SCH (09:36)
[2020-02-11] MEDS: GABAPENTIN 300 MG CAP PO SCH ×3 (09:36→21:07)
[2020-02-11] MEDS: INSULIN GLARGINE SOLOSTAR 100 UNITS/ML 3 ML PEN SC SCH ×2 (09:36→21:07)
[2020-02-11] MEDS: acetaZOLAMIDE 250 MG TAB PO SCH ×2 (09:37→21:06)
[2020-02-11] MEDS: ATENOLOL 50 MG TABLET PO SCH (09:37)
[2020-02-11] MEDS: TAMSULOSIN HCL 0.4 MG CAP PO SCH ×2 (09:38→21:06)
[2020-02-11] MEDS: MECLIZINE HCL 25 MG TAB PO PRN (16:37)
[2020-02-11] MEDS: MECLIZINE HCL 25 MG TAB PO SCH (21:05)
[2020-02-11] MEDS: POTASSIUM CHLORIDE 20 MEQ TABCR PO SCH (21:06)
--- NOTE | 2020-02-11 23:16 | Hospitalist Progress Note ---
Date of Service February 11, 2020 Assessment & Plan (1) Fall from wheelchair: no evidence of acute fracture or internal injury he now complains of vertigo, he says it started after he struck his head see below plan for rehab, [facility] or SN[facility] (2) Nausea: likely due to vertigo, make the Meclizine scheduled for a few days (3) Closed head injury: fell out of his wheelchair, struck head on driveway no evidence of focal neurological deficits after injury no bruising or laceration on exam CT head without evidence of hematoma, no skull fracture (4) Diabetes: with hyperglycemia two days ago, improved somewhat with increasing Lantus to 25 BID and tightening Novolog SS even more improved today with Lantus 30 BID and correction factor 15, carb ratio 5 no hypoglycemic episodes (5) HTN (hypertension): (6) Hx of spinal surgery: (7) Pulmonary nodule: incidental finding on CT chest, can be followed low suspicion, two nodules, both < 4mm (8) Vertigo: started after he struck his head definitely positional, worse with turning head to the side no nystagmus on exam some improvement with Antivert, make the Antivert scheduled will ask for PT with Eply maneuvers to evaluate for BPPV (9) Difficulty swallowing: only with solids, specifically proteins will ask speech to see today -- symptoms improved (10) Hypokalemia: 3.0 today, placed on 20mEq PO BID repeat tomorrow Admission and Anticipated Discharge Date Admission Date: February 11, 2020 Subjective patient stable today, he stood up and pivoted to chair, no walking today, no falls either he still is getting vertigo with head movements will make the meclizine scheduled he is eating better, no chest pain, no dyspnea, no nausea/vomiting discussed going to [facility] tomorrow, he agreed Review of Systems Review of Systems: All systems reviewed & are unremarkable except as noted in Subjective Physical Exam Constitutional: WD/WN, vitals as above Eyes: PERRL, conjunctivae normal, anicteric sclerae ENMT: external ear and nose normal, oropharynx normal Neck: trachea midline, no thyromegaly Respiratory: normal respiratory effort, lungs clear to auscultation Cardiovascular: RRR, no murmur, no edema Gastrointestinal (Abdomen): normal bowel sounds, soft, nontender, no hepatosplenomegaly Musculoskeletal: Head/Neck/Chest: normocephalic, head atraumatic and neck supple Spine: + limited thoraco-lumbar ROM Extremities: extremities normal to inspection, + limited ROM of extremities and + abnormal strength (generalized weakness in lower extremities) Skin: no rashes, warm and dry Neurologic: patellar DTR's 2+ bilat, sensation intact and PERRL, EOMI, accommodation nl, no face palsy, no dysarthria Psychiatric: A+Ox3, euthymic affect Lymphatic: no cervical or axillary lymphadenopathy Results & Data Results & Data ([facility]) Vital Signs (Past 12 Hours) Vital Signs Temp Pulse Pulse Resp BP Pulse Ox 02/11/20 19:00 36.7 C 68 18 146/76 H 94 02/11/20 16:00 72 02/11/20 15:42 36.4 C L 66 16 119/73 94 02/11/20 11:49 37.2 C 64 16 119/78 95 Laboratory Results Laboratory Results - last 24 hr 02/11/20 02/11/20 02/11/20 06:44 06:44 07:38 WBC 9.50 RBC 5.96 Hgb 17.2 Hct 51.1 MCV 85.7 MCH 28.9 MCHC 33.7 RDW Std Deviation 46.1 RDW Coeff of Vicente 14.6 H Plt Count 256 MPV 10.3 Immature Gran % (Auto) 0.5 Neut % (Auto) 62.3 Lymph % (Auto) 26.1 [place] % (Auto) 8.7 Eos % (Auto) 2.2 Baso % (Auto) 0.2 Neut # (Auto) 5.91 Lymph # (Auto) 2.48 [place] # (Auto) 0.83 H Eos # (Auto) 0.21 Baso # (Auto) 0.02 Immature Gran # (Auto) 0.05 H Sodium 141 Potassium 3.0 L Chloride 109 H Carbon Dioxide 25 Anion Gap 7.0 BUN 13 Creatinine 0.99 Est Cr Clr Drug Dosing 81.5 Est GFR ( Amer) 92.9 Est GFR (Non-Af Amer) 80.2 BUN/Creatinine Ratio 13.3 Glucose 173 H POC Glucose 175 H Calcium 9.1 02/11/20 02/11/20 02/11/20 12:08 16:53 20:40 WBC RBC Hgb Hct MCV MCH MCHC RDW Std Deviation RDW Coeff of Vicente Plt Count MPV Immature Gran % (Auto) Neut % (Auto) Lymph % (Auto) [place] % (Auto) Eos % (Auto) Baso % (Auto) Neut # (Auto) Lymph # (Auto) [place] # (Auto) Eos # (Auto) Baso # (Auto) Immature Gran # (Auto) Sodium Potassium Chloride Carbon Dioxide Anion Gap BUN Creatinine Est Cr Clr Drug Dosing Est GFR ( Amer) Est GFR (Non-Af Amer) BUN/Creatinine Ratio Glucose POC Glucose 218 H 183 H 182 H Calcium Medications Administered Current Inpatient Medications Acetaminophen (Acetaminophen 325 Mg Tab) 650 mg PO Q6H [facility] Stop: 03/10/20 05:59 Last Admin: 02/11/20 17:34 Dose: 650 mg Documented by: Acetazolamide (Acetazolamide 250 Mg Tab) 125 mg PO BID [facility] Stop: 03/10/20 08:59 Last Admin: 02/11/20 21:06 Dose: 125 mg Documented by: Atenolol (Atenolol 50 Mg Tablet) 50 mg PO DAILY [facility] Stop: 03/10/20 08:59 Last Admin: 02/11/20 09:37 Dose: 50 mg Documented by: Dextrose (Dextrose 50% 50 Ml Syringe) 25 - 50 ml IV UD PRN; Protocol PRN Reason: Hypoglycemia Protocol Stop: 03/10/20 04:04 Gabapentin (Gabapentin 300 Mg Cap) 300 mg PO TID [facility] Stop: 03/10/20 08:59 Last Admin: 02/11/20 21:07 Dose: 300 mg Documented by: Glucagon (Glucagon For Inj 1 Mg Vial) 1 mg SQ UD PRN; Protocol PRN Reason: Hypoglycemia Protocol Stop: 03/10/20 04:04 Glucose (Glucose 10 Tabs/Tube) 4 - 8 tabs PO UD PRN; Protocol PRN Reason: Hypoglycemia Protocol Stop: 03/10/20 04:04 Glucose (Glucose 40% Gel 15 Gm Tube) 15 - 30 gm PO UD PRN; Protocol PRN Reason: Hypoglycemia Protocol Stop: 03/10/20 04:04 Insulin Aspart (Insulin Aspart 100 Units/Ml 3 Ml Pen) 0 units SC ACHS [facility] Stop: 03/10/20 05:19 Last Admin: 02/11/20 21:08 Dose: 3 units Documented by: Insulin Glargine (Insulin Glargine Solostar 100 Units/Ml 3 Ml Pen) 30 units SC BID [facility] Stop: 03/11/20 20:59 Last Admin: 02/11/20 21:07 Dose: 30 units Documented by: Losartan Potassium (Losartan Potassium 25 Mg Tab) 25 mg PO DAILY [facility] Stop: 03/10/20 08:59 Last Admin: 02/11/20 09:36 Dose: 25 mg Documented by: Meclizine HCl (Meclizine Hcl 25 Mg Tab) 25 mg PO Q8 [facility] Stop: 03/12/20 21:59 Last Admin: 02/11/20 21:05 Dose: 25 mg Documented by: Miscellaneous (Carbohydrates For Hypoglycemia ) 15 - 30 gm PO UD PRN PRN Reason: Hypoglycemia Protocol Stop: 03/10/20 04:04 Potassium Chloride (Potassium Chloride 20 Meq Tabcr) 20 meq PO BID [facility] Stop: 03/12/20 20:59 Last Admin: 02/11/20 21:06 Dose: 20 meq Documented by: Tamsulosin HCl (Tamsulosin Hcl 0.4 Mg Cap) 0.4 mg PO BID [facility] Stop: 03/10/20 08:59 Last Admin: 02/11/20 21:06 Dose: 0.4 mg Documented by: Tramadol HCl (Tramadol Hcl 50 Mg Tablet) 50 mg PO Q6 PRN PRN Reason: Pain Stop: 03/10/20 04:04 Last Admin: 02/10/20 14:34 Dose: 50 mg Documented by: PG Care Time/CCT Total # of Minutes Spent Total Time Spent with Patient: Total time spent is greater than 50% in coordination of care (as documented) at patient's floor/unit and/or counseling patient: Coding Level of Care Code 90776 Subseq Hosp Care Lvl 2 Diagnoses Fall from wheelchair W05.0XXD Encounter type: subsequent encounter Nausea R11.0 Closed head injury S09.90XA Diabetes E11.9 HTN (hypertension) I10 Hx of spinal surgery Z98.890 Pulmonary nodule R91.1 Vertigo R42 Difficulty swallowing R13.10 Hypokalemia E87.6 (1) Fall from wheelchair Encounter type: subsequent encounter Qualified Code(s): W05.0XXD - Fall from non-moving wheelchair, subsequent encounter
[2020-02-12] MEDS: MECLIZINE HCL 25 MG TAB PO SCH ×2 (05:34→14:35)
[2020-02-12] MEDS: ACETAMINOPHEN 325 MG TAB PO SCH ×2 (05:34→12:28)
[2020-02-12 06:52] LABS: Calcium 9.2 mg/dl (8.5-10.1); Creatinine Clr Calc Pharmacy 84.8 ml/min; Est GFR (African American) 105.2; Est GFR (Non-African American) 90.8; Potassium 3.5 mmol/L (3.5-5.1)
[2020-02-12] MEDS: LOSARTAN POTASSIUM 25 MG TAB PO SCH (09:28)
[2020-02-12] MEDS: GABAPENTIN 300 MG CAP PO SCH ×2 (09:28→14:35)
[2020-02-12] MEDS: TAMSULOSIN HCL 0.4 MG CAP PO SCH (09:29)
[2020-02-12] MEDS: POTASSIUM CHLORIDE 20 MEQ TABCR PO SCH (09:29)
[2020-02-12] MEDS: ATENOLOL 50 MG TABLET PO SCH (09:29)
[2020-02-12] MEDS: acetaZOLAMIDE 250 MG TAB PO SCH (09:30)
[2020-02-12] MEDS: INSULIN ASPART 100 UNITS/ML 3 ML PEN SC SCH ×2 (09:32→12:29)
[2020-02-12] MEDS: INSULIN GLARGINE SOLOSTAR 100 UNITS/ML 3 ML PEN SC SCH (09:34)
--- NOTE | 2020-02-15 16:11 | Discharge Summary ---
Date of Service February 12, 2020 Admission HPI Per Admitting Provider Tushar is a 64-year-old male with a past medical history of multiple spinal surgeries with resultant numbness to soft touch and most pain below the level of T4, weakness in his bilateral lower extremities, weakness in his right extremity, and normal function of his left arm. 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 He presents to the hospital after he was wheeling backwards in his wheelchair which tipped over backwards causing him to fall back and strike his occiput and left temporal skull. He reports "he saw stars "and heard a crack, and was dazed for a minute or 2. His sisters who live next door help care for him, his sister is present at bedside to help give collateral. He called EMS and was transported to the ED for evaluation by ambulance. On arrival he had 10/10 pain and sensitivity in his left temporal cranium, but felt he was at his normal cognitive baseline. He did not experience any worsening of his sensory deficits or acute weakness. He denies syncope, presyncope, chest pain, chest pressure, shortness of breath. No recent sick contacts. He reports his fall was mechanical and that he did not have any lightheadedness/dizziness or neurologic change that led to his fall. He is currently nauseous. Denies other symptoms. He endorses multiple falls in the previous month, and several in the last week. He reports that this has been worse with muscle relaxants, but even since stopping he has continued to have multiple falls per week. Medical history: Reviewed Surgical history: Reviewed Medications: Reviewed Allergies: Reviewed Family history: Noncontributory CODE STATUS: DNR/DNI, confirmed with patient Principal Diagnosis Fall from wheelchair with closed head trauma Discharge Exam Constitutional WD/WN, vitals as above Eyes PERRL, conjunctivae normal, anicteric sclerae ENMT external ear and nose normal, oropharynx normal Neck trachea midline, no thyromegaly Respiratory normal respiratory effort, lungs clear to auscultation Cardiovascular RRR, no murmur, no edema Gastrointestinal (Abdomen) normal bowel sounds, soft, nontender, no hepatosplenomegaly Musculoskeletal Head/Neck/Chest: normocephalic, head atraumatic and neck supple Spine: + limited thoraco-lumbar ROM Extremities: extremities normal to inspection, + limited ROM of extremities and + abnormal strength (generalized weakness in lower extremities) Skin no rashes, warm and dry Neurologic patellar DTR's 2+ bilat, sensation intact and PERRL, EOMI, accommodation nl, no face palsy, no dysarthria Psychiatric A+Ox3, euthymic affect Lymphatic no cervical or axillary lymphadenopathy Discharge Data Allergies Allergy/AdvReac Type Severity Reaction Status Date / Time Sulfa (Sulfonamide Allergy Unknown Verified 02/09/20 01:29 Antibiotics) canagliflozin [From Invokana] AdvReac Unknown Verified 02/09/20 01:29 metformin AdvReac Gastrointestinal Verified 02/09/20 01:29 Upset Consultations 02/09/20 02:39 ED Decision to Admit Stat 02/09/20 02:46 Consult Case Management - Discharge Planning Routine Ordered Studies 02/08/20 22:14 CT lumbar spine wo con Urgent CT thoracic spine wo con Urgent 02/08/20 22:15 CT abd pelvis IV con only Urgent CT cervical spine wo con Urgent CT chest w con Urgent CT head/brain wo con Urgent Hospital Course (1) Fall from wheelchair: no evidence of acute fracture or internal injury he now complains of vertigo, he says it started after he struck his head see below plan for rehab, accepted to [facility] (2) Nausea: likely due to vertigo, make the Meclizine scheduled for a few days can then use PRN (3) Closed head injury: fell out of his wheelchair, struck head on driveway no evidence of focal neurological deficits after injury no bruising or laceration on exam CT head without evidence of hematoma, no skull fracture (4) Diabetes: with hyperglycemia two days ago, improved somewhat with increasing Lantus to 25 BID and tightening Novolog SS even more improved with Lantus 30 BID and correction factor 15, carb ratio 5 no hypoglycemic episodes resume outpatient regimen (5) HTN (hypertension): (6) Hx of spinal surgery: (7) Pulmonary nodule: incidental finding on CT chest, can be followed low suspicion, two nodules, both < 4mm (8) Vertigo: started after he struck his head definitely positional, worse with turning head to the side no nystagmus on exam some improvement with Antivert, make the Antivert scheduled will ask for PT with Eply maneuvers to evaluate for BPPV continue therapy at [facility] (9) Difficulty swallowing: only with solids, specifically proteins will ask speech to see today -- symptoms improved (10) Hypokalemia: 3.0, placed on 20mEq PO BID repeat level is normal Total Time Total Time Spent Total Time Spent (In Minutes): 32 minutes Total Time Includes: Examination of the Patient, Discharge Planning and Medication Reconciliation Discharge Plan Discharge Items Patient Disposition: Transfer Alf Fac Reason For Visit: HEAD INJURY, SOCIAL CONCERNS Discharge Diagnosis: Vertigo Fall from wheelchair, closed head injury 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 Condition on Discharge: Good Goals: improve strength and mobility Activity: Resume your previous activity Weightbearing: Full weightbearing Non-emergency contact: Primary Care Provider Call non-emergency contact if: you have any medication questions and your symptoms worsen Follow-up/Referrals: J Carlos Lopez [Primary Care Provider] - Diet: Carb Consistent or DM2 Addtl Attending Provider Instructions: Medications: - MECLIZINE: 25mg every 8 hours scheduled for the next three days then just use as needed for vertigo every 8 hours Fall from wheelchair, struck head, vertigo, weakness closed head injury when he fell from wheelchair, CT head showed no subdural hematoma extensive imaging of abdomen, chest, spine showed no injuries main issue has been lower extremity weakness and vertigo, worse with positioning continue Meclizine, scheduled at first as it is helping, then use as needed continue PT/OT with goal to get back home, prior to this he was ambulating with rolling walker, lives alone Pending Studies at Discharge: No Stand-Alone Forms: My [facility] Skilled Items Patient informed of condition?: Yes DNR: Yes Discharge Level of Care: Skilled Communicable Disease: No Discharge Prognosis: Stable Lines: None Urinary Catheter: No Medications and DC Order Prescriptions: New meclizine 25 mg Tablet 25 mg PO Q8 30 Days Qty: 90 RF: 0 Continued acetazolamide 125 mg tablet 125 mg PO BID RF: 0 tramadol 50 mg tablet 50 mg PO Q6 PRN (Reason: Pain) RF: 0 tamsulosin 0.4 mg capsule 0.4 mg PO BID RF: 0 pantoprazole 40 mg tablet,delayed release (DR/EC) 40 mg PO DAILY RF: 0 losartan 25 mg tablet 25 mg PO DAILY RF: 0 gabapentin 300 mg capsule 300 mg PO TID RF: 0 atenolol 50 mg tablet 50 mg PO DAILY RF: 0 Levemir FlexTouch U-100 Insuln 100 unit/mL (3 mL) insulin pen 64 unit SUBCUT HS RF: 0 Discharge Orders: Discharge Order (Routine); Ordered 02/12/20 Ordered By: Santiago Paulson Admission Data Admit Date/Time: 02/09/20 02:45 Attending Provider: Santiago Paulson Admit Provider: Freddy Orourke Primary Care Provider: J Carlos Lopez Other Providers: Tino Tyler ; [facility] ; [facility] Other Interventions: Discharge Summary Assessment (RN) Last Done: 02/12/20 16:16 Coding Level of Care Code D/C Day Management >30 mins Diagnoses Fall from wheelchair W05.0XXD Encounter type: subsequent encounter Nausea R11.0 Closed head injury S09.90XA Diabetes E11.9 HTN (hypertension) I10 Hx of spinal surgery Z98.890 Pulmonary nodule R91.1 Vertigo R42 Difficulty swallowing R13.10 Hypokalemia E87.6
== END 2020-02-12 16:53 | DRG 914 ==
LOC: ED 21:56 → 2N 21:56 → SUATTDRO 02-09 02:45 → 2N 02-09 03:01